=== PATIENT | male | born 1940 | race Caucasian/White ===

== ENCOUNTER 2023-12-14 10:19 | Emergency (ER) | payer MEDICARE, OTHER, SELFPAY ==
--- NOTE | 2023-12-14 10:20 | ED.DENTAL ---
HPI - Dental/Oral General Chief complaint: Dental/Oral Stated complaint: Swollen Lip Time Seen by Provider: 12/14/23 10:20 Source: patient Mode of arrival: ambulatory Limitations: no limitations History of Present Illness HPI Narrative: Drew is an 83-year-old male patient presenting to the clinic today with complaints of a swollen lip. He reports the lip started swelling this morning. Reports that he may have been bitten by an insect on the left upper chest wall yesterday while out the garden. He denies any chest pain, shortness of breath, drooling, difficulty swallowing, tongue swelling, or difficulty breathing. States the only medication he takes is metoprolol and Aricept. Related Data Home Medications Medication Instructions Recorded Confirmed donepezil 5 mg tablet (Aricept) 5 mg PO HS 12/14/23 12/14/23 metoprolol succinate 25 mg capsule 25 mg PO DAILY 12/14/23 12/14/23 sprinkle, ext. release 24 hr Allergies Allergy/AdvReac Type Severity Reaction Status Date / Time No Known Allergies Allergy Verified 12/14/23 10:30 Review of Systems Review of Systems: Pertinent positives per HPI. Patient denies any fever, chills, headache, visual changes, dizziness, cough, runny nose, sore throat, shortness of breath, chest pain, palpitations, nausea, vomiting, diarrhea, constipation, abdominal pain, or any urinary issues. PMFSH Comments At the time of my signature, I reviewed and agree with the nursing past medical, surgical, social, and family history. There is no relevant family history pertinent to the patient complaint. Exam Narrative: General: Well-developed, well nourished, in no apparent distress Head: Normocephalic, atraumatic Eyes: Pupils equally round and reactive to light bilaterally, EOM intact, sclera and conjunctive clear, no discharge, lids normal Ears: TMs intact and clear, ear canals clear, no drainage, grossly hearing normal. Nose: Nares patent, no discharge, no inflammation, no sinus tenderness. Mouth: Oropharynx without lesions or masses, good dentition, MMM. Left lower lip swelling-no injury, nontender to palpation, no palpable abscess Neck: Supple, trachea midline, no enlargement of anterior or posterior cervical nodes, no thyroid masses or goiter palpable. Cardio: Regular rate and rhythm, s1 and s2 normal, no murmur appreciated. Resp: Clear to auscultation bilaterally anteriorly and posteriorly, no rhonchi, rales, wheezing or rubs Integumentary: [place], warm, and dry, intact without lesion, red raised mildly itchy insect bite measuring approximately 2 cm x 1 and 0.5 cm to the left upper chest wall Course Course Emergency Course: Portions of this record may have been created with voice recognition software. Level of Care: Express Care Visit Vital Signs Vital signs: Vital Signs Temperature 36.7 C 12/14/23 10:39 Pulse Rate 61 12/14/23 10:39 Respiratory Rate 16 12/14/23 10:39 Blood Pressure 191/89 H 12/14/23 10:39 Pulse Oximetry 99 12/14/23 10:39 Temperature 36.7 C 12/14/23 10:39 Pulse Rate 61 12/14/23 10:39 Respiratory Rate 16 12/14/23 10:39 Blood Pressure 191/89 H 12/14/23 10:39 Pulse Oximetry 99 12/14/23 10:39 Vital signs reviewed MDM - Dental/Oral MDM Narrative Medical decision making narrative: At the time of visit patient is resting comfortably on the exam table. Patient appears to be nontoxic. Medications given: 125 mg of Solu-Medrol IM Plan: Will give 125 mg of Solu-Medrol in the clinic today. Will send in a 10 day taper dose of prednisone patient to start this tomorrow. Will also send in prescription for some Pepcid 40 mg daily for histamine gopi. Patient aware of any of his symptoms worsen he is to go to the emergency room immediately. Supportive measures were discussed with the patient and they voiced understanding discharge instructions and agrees to treatment plan. Return precautions reviewed Differential Diagno
[2023-12-14 10:39] VITALS: BP 191/89; PULSE 61; RESP 16; TEMP 36.7; O2SAT 99
[2023-12-14] MEDS: methylPREDNISolone SOD SUCC 125 MG VIAL IM (10:51)
== END 2023-12-14 11:04 | disposition home or self-care (01) ==
PROVIDERS: Emergency Provider Nurse Practitioner Family
DX: R22.0 Localized swelling, mass and lump, head (principal); S20.362A Insect bite (nonvenomous) of left front wall of thorax, initial encounter; W57.XXXA Bitten or stung by nonvenomous insect and other nonvenomous arthropods, initial encounter; T78.40XA Allergy, unspecified, initial encounter; I48.91 Unspecified atrial fibrillation
CPT/HCPCS: 96372; 99213; G0463; J2919